=== PATIENT | male | born 1980 | race Caucasian/White ===

== ENCOUNTER 2022-05-23 09:56 | Emergency (ER) | payer BC, SELFPAY ==
[2022-05-23 10:07] VITALS: BP 152/81; PULSE 83; RESP 16; TEMP 37.1; O2SAT 99
--- NOTE | 2022-05-23 10:14 | ED.ABDPAIN ---
HPI - Abdominal Pain General Chief Complaint: Abdominal Pain Stated Complaint: Abdominal Pain Time Seen by Provider: 05/23/22 10:15 Source: patient and RN notes reviewed Mode of arrival: ambulatory Limitations: no limitations History of Present Illness HPI narrative: 42 y/o male presented for c/o left lower abdominal abdominal concern. States he does not have pain to the site unless pressing on it. About one week ago he was leaning over a car while working on it, and thought he may have poked the area with a bolt. Denies bruising, bleeding or abrasions. States the only reason he is here is because his noticed a 'lump' to the area while he was stretching the other day. States the lump is spreading to the groin but is not painful and not notable without stretching. Endorses diarrhea today. Denies nausea, vomiting, urinary complaint, fever or chills. Denies significant medical history. Smokes 1/2ppd. Related Data Home Medications Medication Instructions Recorded Confirmed No Home Medications 05/23/22 05/23/22 Allergies Allergy/AdvReac Type Severity Reaction Status Date / Time No Known Allergies Allergy Mild Unverified 05/23/22 10:09 Review of Systems Review of Systems: CONSTITUTIONAL: Denies body aches, fever, chills ENT: Denies rhinorrhea, congestion CARDIOVASCULAR: Denies chest pain, palpitations, or edema. RESPIRATORY: Denies cough or dyspnea. GASTROINTESTINAL: Denies abdominal pain, nausea, vomiting, hematochezia, melena GENITOURINARY: Denies dysuria, hematuria, or CVA tenderness. SKIN: Denies rash, itching, or wounds. MUSCULOSKELETAL: Denies back pain, joint pain, or myalgia. NEUROLOGIC: Denies headache, numbness, tingling, or weakness. All systems reviewed & are unremarkable except as noted in HPI and below PMFSH Past Medical History Medical History (Updated 05/23/22 @ 10:46 by Sandra Crisostomo APRN) No pertinent past medical history Comments At time of signature, I have reviewed and agree with nursing past medical, surgical, social and family history unless otherwise noted. Please see nursing chart for further information. There is no relevant family history pertinent to the presenting complaint Exam Narrative: GENERAL: Well-appearing, and in no acute distress. EYES: EOMI. Conjunctivae normal. ENT: Mucous membranes pink and moist. CHEST: No respiratory distress. Clear to auscultation. HEART: Regular rate and rhythm. No murmur appreciated. Normal peripheral pulses. ABDOMEN: abd soft, nondistended, nontender, normal active bowel sounds. No guarding, rebound tenderness, asymmetry. When patient standing and stretching left side, skin colored subcutaneous raised tissue to LLQ. Nontender, no discoloration or rash. EXTREMITIES: Normal range of motion. No edema. SKIN: Warm, dry, no rash. Capillary refill normal. Normal skin turgor. NEURO: Alert and oriented x3. PSYCH: Normal affect. Course Course Emergency Course: Patient is aware of diagnosis, understands and agrees to treatment plan. Anticipatory guidance given. Patient agrees to follow-up as directed and is aware of reasons to seek care at the emergency department. Portions of this record may have been created with voice recognition software Level of Care: Express Care Visit Vital Signs Vital signs: Vital Signs Temperature 98.7 F 05/23/22 10:07 Pulse Rate 83 05/23/22 10:07 Respiratory Rate 16 05/23/22 10:07 Blood Pressure 152/81 H 05/23/22 10:07 Pulse Oximetry 99 05/23/22 10:07 Oxygen Delivery Room Air 05/23/22 10:07 Temperature 98.7 F 05/23/22 10:07 Pulse Rate 83 05/23/22 10:07 Respiratory Rate 16 05/23/22 10:07 Blood Pressure 152/81 H 05/23/22 10:07 Pulse Oximetry 99 05/23/22 10:07 Oxygen Delivery Room Air 05/23/22 10:07 MDM - Abdominal Pain MDM Narrative Medical decision making narrative: No evidence of pancreatitis, AAA, cholecystitis, choledocholithiasis, cholangitis, me
== END 2022-05-23 10:37 | disposition home or self-care (01) ==
PROVIDERS: Emergency Provider Nurse Practitioner Family
DX: R10.32 Left lower quadrant pain (principal)
CPT/HCPCS: 99211; G0463

== ENCOUNTER 2023-05-02 14:59 | Emergency (ER) | payer BC, SELFPAY ==
[2023-05-02 15:16] VITALS: BP 143/93; PULSE 89; RESP 16; TEMP 37; O2SAT 98
--- NOTE | 2023-05-02 15:59 | ED.WOUNDLAC ---
HPI - Wound/Laceration General Chief Complaint: Wound/Laceration Stated Complaint: cut fingers Time Seen by Provider: 05/02/23 15:53 Source: patient and RN notes reviewed Mode of arrival: ambulatory Limitations: no limitations History of Present Illness HPI narrative: 43-year-old male presents with concern for laceration to the 3rd digit of left hand. He reports he was using a razor blade when he lacerated his finger. He reports he is up-to-date on his tetanus vaccination. He reports he was not able to get it to stop bleeding. He denies decreased sensation, strength, range of motion in the digit. Related Data Home Medications Medication Instructions Recorded Confirmed atorvastatin 40 mg tablet 40 mg PO DAILY 05/02/23 05/02/23 Allergies Allergy/AdvReac Type Severity Reaction Status Date / Time No Known Allergies Allergy Mild Verified 05/02/23 15:20 Review of Systems Review of Systems: CONSTITUTIONAL: Denies malaise, chills, sweats, or fever. SKIN: Reports laceration to the 3rd digit of the left hand MUSCULOSKELETAL: Denies muscle skeletal pain NEUROLOGIC: Denies numbness, weakness All systems reviewed & are unremarkable except as noted in HPI and below PMFSH Past Medical History Medical History (Updated 05/02/23 @ 16:05 by Jessi Person NP) No pertinent past medical history Comments At time of signature, agree with nursing past medical, surgical, social and family history. There is no relevant family history pertinent to the presenting complaint Exam Narrative: GENERAL: Well-appearing, well-nourished, and in no acute distress. HEAD: Normocephalic, atraumatic. EYES: PERRLA, conjunctivae clear ENT: Mucous membranes moist. NECK: Supple. No lymphadenopathy CHEST: Clear to auscultation. No respiratory distress. HEART: Regular rate and rhythm. SKIN: Warm, dry. Superficial v-shaped laceration noted to the pad of the distal 3rd digit of the left hand. Wound is well approximated without bleeding. NEURO: Alert and oriented x3. PSYCH: Normal mood and affect Course Course Emergency Course: Patient is aware of diagnosis, understands and agrees to treatment plan. Anticipatory guidance given. Patient agrees to follow-up as directed and is aware of reasons to seek care at the emergency department. Portions of this record may have been created with voice recognition software Level of Care: Express Care Visit Vital Signs Vital signs: Vital Signs Temperature 98.6 F 05/02/23 15:16 Pulse Rate 89 05/02/23 15:16 Respiratory Rate 16 05/02/23 15:16 Blood Pressure 143/93 H 05/02/23 15:16 Pulse Oximetry 98 05/02/23 15:16 Oxygen Delivery Room Air 05/02/23 15:16 Temperature 98.6 F 05/02/23 15:16 Pulse Rate 89 05/02/23 15:16 Respiratory Rate 16 05/02/23 15:16 Blood Pressure 143/93 H 05/02/23 15:16 Pulse Oximetry 98 05/02/23 15:16 Oxygen Delivery Room Air 05/02/23 15:20 Reviewed. Procedures Laceration Laceration 1: Date: 05/02/23 Time: 16:04 Site: hand Side (If applicable): left Size (cm): 1.5 Description: linear Depth: simple, single layer Pre-repair: irrigated ====== Skin Level ====== Skin layer closed with: dermabond ====== Subcutaneous Layer ====== ====== Muscle Layer ====== ====== Tendon Layer ====== MDM - Wound/Laceration MDM Narrative Medical decision making narrative: Exam findings show no acute concerns or changes; patient is non-toxic appearing and is in no distress. Patient is appropriate for outpatient treatment and follow-up. Differential Diagnosis Differential diagnosis: Likely laceration, abrasion and avulsion of skin Critical Care Time Critical Care Time Critical Care Time: No Discharge Plan Discharge Clinical Impression: Laceration Patient Disposition: Home, Self-Care Condition: Stable Instructions: Laceration (ED) Additiona
== END 2023-05-02 16:10 | disposition home or self-care (01) ==
PROVIDERS: Emergency Provider Nurse Practitioner; PCP Family Medicine
DX: S61.213A Laceration without foreign body of left middle finger without damage to nail, initial encounter (principal); W26.8XXA Contact with other sharp object(s), not elsewhere classified, initial encounter; E78.00 Pure hypercholesterolemia, unspecified
CPT/HCPCS: 12001; 99212; G0463